=== PATIENT | male | born 1960 | race Caucasian/White ===

== ENCOUNTER 2022-07-05 00:33 | Emergency (ER) | payer SELFPAY ==
[~2022-07-05] VITALS: Ht 167.6 cm; Wt 68.0 kg
--- NOTE | 2022-07-05 01:47 | NUR ---
[facility] C/O CARRILLO CATH CHANGE AND COLOSTOMY BAG. PT AWAKE AND ALERT X4 ARRIVED IN WHEELCHAIR. PLACED IN ER BED 6. MD WAS AT BEDSIDE.
--- NOTE | 2022-07-05 01:59 | NUR ---
F/C INSERTED Fr 18G CLOUDY YELLOW URINE OUTPUT
--- NOTE | 2022-07-05 02:01 | NUR ---
URINE COLLECTED AND SENT TO LAB
[2022-07-05 02:43] LABS: BILIRUBIN,URINE NEGATIVE (NEGATIVE); COLOR,URINE YELLOW (YELLOW); LEUKOCYTE ESTERASE ,URINE LARGE (NEGATIVE); NITRITE, URINE POSITIVE (NEGATIVE); PH,URINE 8.5 (5.0-8.0); PROTEIN,URINE >=300 mg/dl (NEGATIVE); UGLUCOSE NEGATIVE (NEGATIVE); UROBILINOGEN,URINE 0.2 EU/dL (0.2)
[2022-07-05 02:45] LABS: BACTERIA,URINE Many /HPF (None Seen); SQUAMOUS EPITHELIAL CELL,UR Few /HPF (None Seen); WBC,URINE 21-50 /HPF (0-3)
[2022-07-05] MEDS ORDERED: CIPR-262 PO (02:54)
--- NOTE | 2022-07-05 02:59 | NUR ---
Patient discharged to home in stable condition. Written and verbal after care instructions given. Patient verbalizes understanding of instruction.
[2022-07-05 06:04] VITALS: BP 141/70
== END 2022-07-05 06:07 | disposition home or self-care (01) ==
LOC: ER 00:40
DX: Z46.6 Encounter for fitting and adjustment of urinary device (principal); N39.0 Urinary tract infection, site not specified; Z60.2 Problems related to living alone
CPT/HCPCS: 81001; 87086-TC